=== PATIENT | male | born 1950 | race African-American/Black ===

== ENCOUNTER 2019-04-18 21:44 | Emergency (ER) | payer OTHER ==
[~2019-04-18] VITALS: Ht 177.8 cm; Wt 86.2 kg
[~2019-04-18 21:44] MED LIST: CIPRO500 MG PO; COZAAR 25 MG TA25 M1 PO; DEPO-TESTO200 MG/1 M IM; FLEXERIL PO; FLOMAX0.4 MG PO; HYDROCHLOROTH12.5 M1 PO; HYDROCODONE-AP1 EAC6 PO; LEVAQUIN 250 M250 MG PO; LOVASTATIN 20 M20 MG PO; MOBIC15 MG PO; PHENAZOPYRIDIN200 M2 PO; SEROPHENE50 MG PO; TOPROL XL25 MG PO
[2019-04-18 22:18] LABS: ABSOLUTE NEUTROPHILS 3.7 thou/uL (1.4-8.2); BASOPHILS 0.5 % (0.0-2.0); EOSINOPHILS 1.9 % (0.0-3.0); HEMOGLOBIN 13.3 gm/dL (14.0-18.0); MCH 30.5 pg (26.0-34.0); MCHC 33.1 g/dL (28.0-37.0); MCV 92.2 fL (80.0-100.0); MONOCYTES 7.2 % (1.0-8.0); PLATELET COUNT 166 thou/uL (150-400); POLYS 49.4 % (36.0-66.0); RBC 4.34 mil/uL (4.50-6.00); RDW 13.8 % (10.5-14.5); WBC 7.5 thou/uL (4.0-11.0)
[2019-04-18 22:34] LABS: ANION GAP 7 mmol/L (7-16); BUN 21 mg/dL (7-18); CALCIUM 9.6 mg/dL (8.5-10.1); CHLORIDE 104 mmol/L (98-107); CO2 30 mmol/L (21-32); CREATININE 1.3 mg/dL (0.7-1.3); GLUCOSE 109 mg/dL (74-106); POTASSIUM 3.9 mmol/L (3.5-5.1); SODIUM 141 mmol/L (136-145)
[2019-04-18 22:37] LABS: ALBUMIN 3.9 g/dL (3.4-5.0); MAGNESIUM 1.8 mg/dL (1.8-2.4); SGOT 23 U/L (15-37); SGPT 41 U/L (30-65); TOTAL BILIRUBIN 0.2 mg/dL (<0.1-1.0); TOTAL PROTEIN 7.3 g/dL (6.4-8.2); TROPONIN-I <0.06 ng/mL (<0.06)
[2019-04-18 23:46] LABS: AMP/METHAMP Negative (Negative); BARBITURATES Negative (Negative); BENZODIAZEPINES Negative (Negative); COCAINE Negative (Negative); METHADONE Negative (Negative); OPIATES POSITIVE (Negative); PCP Negative (Negative)
[2019-04-19 00:33] VITALS: BP 138/68
--- NOTE | 2019-04-21 07:44 | EKG ---
[address] [address] [place] [address] ELECTROCARDIOGRAM REPORT Name: DINORA ALEJANDREVIC Branch [facility] [id number] Admission: 04/18/19 Attend Phys: Discharge: 04/19/19 Date of : 52 Report #: [id number] THIS REPORT FOR: //name// [facility] ED Test Date: 2019-04-18 Test Time: 21:48:03 Pat Name: MG ALEJANDRE Department: Room: Gender: M Alarm Service Technician: [place] : 1950 Requested By: Mando Agudelo Order Number: [id number] MD: Gatito Larson Measurements Intervals [place] Rate: 72 P: 52 MO: 182 QRS: 21 QRSD: 98 T: 57 QT: 398 QTc: 436 Interpretive Statements Sinus rhythm Abnormal R-wave progression, early transition Compared to ECG 03/09/2009 22:16:33 Prolonged QT interval no longer present Electronically Signed On 04-21-2019 7:43:53 AMBULATORY NURSE by Gatito Larson [email or web address] <ELECTRONICALLY SIGNED> By: Gatito Larson MD, [facility] 04/21/19 0743 [id number] Gatito Larson MD, FACC /EPI
== END 2019-04-19 00:35 | disposition home or self-care (01) ==
LOC: ER 21:44
PROVIDERS: Emergency Medicine
DX: R00.2 Palpitations (principal); I10 Essential (primary) hypertension; E78.00 Pure hypercholesterolemia, unspecified; M25.512 Pain in left shoulder; G89.29 Other chronic pain; Z88.7 Allergy status to serum and vaccine

== ENCOUNTER → 2019-06-04 | Outpatient (CLI) | payer OTHER | LOC: SJCVC 16:56 | DX: R94.31 Abnormal electrocardiogram [ECG] [EKG] (principal); R00.2 Palpitations; I10 Essential (primary) hypertension; E78.5 Hyperlipidemia, unspecified; N52.1 Erectile dysfunction due to diseases classified elsewhere; Z79.899 Other long term (current) drug therapy ==

== ENCOUNTER → 2019-06-19 | Outpatient (CLI) | payer OTHER | LOC: SJCVCIMAG 09:44 | DX: I10 Essential (primary) hypertension (principal); E78.5 Hyperlipidemia, unspecified ==

== ENCOUNTER → 2019-07-09 | Outpatient (CLI) | payer OTHER | LOC: SJCVC 13:31 | DX: R00.2 Palpitations (principal); I10 Essential (primary) hypertension; E78.5 Hyperlipidemia, unspecified; F41.9 Anxiety disorder, unspecified; Z79.899 Other long term (current) drug therapy ==